=== PATIENT | male | born 1995 ===

== ENCOUNTER 2016-12-22 14:29 | Emergency (ER) | payer OTHER ==
[2016-12-22 14:33] VITALS: BMI 24.1
[2016-12-22 14:35] VITALS: O2SAT 97
[2016-12-22] MEDS ORDERED: Sodium Chloride 0.9% 1,000 ML IV ONE (14:53)
[2016-12-22] MEDS ORDERED: Sodium Chloride 0.9% 1,000 ML ONE (15:12)
[2016-12-22 15:16] LABS: BASO % 0.6 % (0.0-2.0); EOS # 0.1 K/uL (0.0-0.7); EOS % 1.6 % (0.0-4.0); HEMATOCRIT 41.8 % (35.0-51.0); LYMPH # 1.2 K/uL (1.0-4.3); LYMPH % 38.9 % (20.0-40.0); MEAN CELL VOLUME 90.6 fL (80.0-94.0); MEAN CORPUSCULAR HEMOGLOBIN 30.4 pg (27.0-31.0); MEAN CORPUSCULAR HGB CONC 33.6 g/dL (33.0-37.0); MEAN PLATELET VOLUME 8.1 fL (7.2-11.7); MONO # 0.5 K/uL (0.0-0.8); MONO % 16.7 % (0.0-10.0); NRBC % 0.1 % (0.0-2.0); RED CELL DISTRIBUTION WIDTH 12.9 % (11.5-14.5); WHITE BLOOD COUNT 3.1 K/uL (4.8-10.8)
--- NOTE | 2016-12-22 15:19 | C.PDOC ---
History Of Present Illness 21 y/o male presents to ED with complaints of multiple episodes of vomiting and diarrhea since yesterday. Patient states he ate at a [place] restaurant yesterday and 1 hour later symptoms developed. He reports multiple episodes of NB/NB vomitus and loose stool. Denies abdominal pain, fever, blood in stool, dysuria, hematuria, recent antibiotic use, recent travel. 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 Time Seen by Provider: 12/22/16 14:35 Chief Complaint (Nursing): Abdominal Pain History Per: Patient History/Exam Limitations: no limitations Onset/Duration Of Symptoms: Days Current Symptoms Are (Timing): Still Present Context: Food Past Medical History Reviewed: Historical Data, Nursing Documentation, Vital Signs Vital Signs: Last Vital Signs Temp 97.4 F L 12/22/16 16:29 Pulse 80 12/22/16 16:29 Resp 16 12/22/16 16:29 BP 124/69 12/22/16 16:29 Pulse Ox 97 12/22/16 16:29 - [facility] Procedures ORCHIOPEXY (05/09/13) Family History: States: Unknown Family Hx - Social History Hx Alcohol Use: No Hx Substance Use: No - Immunization History Hx Tetanus Toxoid Vaccination: No Hx Influenza Vaccination: No Hx Pneumococcal Vaccination: No Review Of Systems Except As Marked, All Systems Reviewed And Found Negative. Constitutional: Negative for: Fever, Chills Eyes: Negative for: Pain ENT: Negative for: Ear Pain Cardiovascular: Negative for: Chest Pain, Palpitations, Orthopnea Respiratory: Negative for: Cough, Shortness of Breath, SOB with Excertion, Wheezing Gastrointestinal: Positive for: Vomiting, Diarrhea. Negative for: Abdominal Pain, Constipation Genitourinary: Negative for: Dysuria, Frequency, Hematuria, Penile Discharge, Scrotal Pain Skin: Negative for: Rash Neurological: Negative for: Dizziness Psych: Negative for: Anxiety Physical Exam - Physical Exam Appears: Well, Non-toxic, No Acute Distress Skin: Normal Color, Warm, No Rash Head: Atraumatic, Normacephalic Eye(s): bilateral: Normal Inspection, PERRL, EOMI Oral Mucosa: Moist Chest: Symmetrical Cardiovascular: Rhythm Regular Respiratory: Normal Breath Sounds, No Rales, No Rhonchi, No Wheezing Gastrointestinal/Abdominal: Soft, No Tenderness, No Distention, No Guarding, No Rebound Back: Normal Inspection, No CVA Tenderness Extremity: Normal ROM Neurological/Psych: Oriented x3, Normal Speech, Normal Cognition Gait: Steady ED Course And Treatment - Laboratory Results Result Diagrams: 12/22/16 15:09 12/22/16 15:09 O2 Sat by Pulse Oximetry: 97 (RA) Pulse Ox Interpretation: Normal Medical Decision Making Medical Decision Making: Plan: * IV fluids * Pepcid, zofran * labs 3:41PM CBC and CMP grossly normal. Lipase WNL. IVF infusing 4:32PM Patient has been monitored in the ED for 2 hours. He has not had any additional episodes of vomiting or diarrhea. He is tolerating po. He continues to have soft NT/ND abdomen. He reports that he feels better and wants to go home. Disposition - Disposition Disposition: HOME/ ROUTINE Disposition Time: 16:21 Condition: GOOD Additional Instructions: Advance diet slowly. Return to ED if condition worsens. FOllow-up with PMD within 2 days. Instructions: Gastroenteritis (ED) Forms: [facility] ([place]), Work Excuse - Clinical Impression Clinical Impression: Gastroenteritis - Scribe Statement The provider has reviewed the documentation as recorded by the Mariluzibsharita Vega All medical record entries made by the Mariluzibsharita were at my direction and personally dictated by me. I have reviewed the chart and agree that the record accurately reflects my personal performance of the history, physical exam, medical decision making, and the department course for this patient. I have also personally directed, reviewed, and agree with the discharge instructions and disposition.
[2016-12-22 15:27] LABS: ALB/GLOB RATIO 1.4 (1.0-2.1); ALKALINE PHOSPHATASE 68 U/L (38-126); ALT/SGPT 30 U/L (21-72); AST/SGOT 26 U/L (17-59); BLOOD UREA NITROGEN 14 mg/dL (9-20); CALCIUM 8.9 mg/dl (8.6-10.4); CARBON DIOXIDE 25 mmol/L (22-30); CHLORIDE 100 mmol/L (98-107); GFR AFRICAN-AMERICAN > 60; GLUCOSE,RANDOM 85 mg/dL (75-110); MAGNESIUM 1.9 mg/dL (1.6-2.3); PHOSPHOROUS 3.3 mg/dL (2.5-4.5); POTASSIUM 4.1 mmol/L (3.6-5.2); SODIUM 138 mmol/L (132-148); TOTAL PROTEIN 7.8 g/dL (6.3-8.3)
[2016-12-22 16:30] VITALS: BP 124/69; PULSE 80; RESP 16; TEMP 97.4
== END 2016-12-22 16:29 | disposition home or self-care (01) ==
LOC: C.ER 14:29
DX: K52.9 Noninfective gastroenteritis and colitis, unspecified (principal)
CPT/HCPCS: 80053; 83690; 83735; 84100; 85025; 96361; 96374; 96375; 99284; J2405; J7040

== ENCOUNTER 2017-11-19 22:19 | Emergency (ER) | payer SELFPAY ==
[2017-11-19 22:19] VITALS: BMI 24.1
[2017-11-19 22:25] VITALS: BP 143/64; PULSE 77; RESP 18; TEMP 98; O2SAT 98
[2017-11-19] MEDS ORDERED: Acetaminophen-Codeine 300/30 mg Tab PO STA (23:01)
[2017-11-19] MEDS ORDERED: Acetaminophen-Codeine 300/30 mg Tab PO ONE (23:06)
--- NOTE | 2017-11-19 23:25 | C.PDOC ---
History Of Present Illness 21 year old male presets to the ED c/o right sided dental pain. Patient is c/o upper and lower teeth pain, that patient thinks might be his wisdom teeth. 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 Patient denies injury, fall, trauma, fever, chills, nausea, vomit, diarrhea, headache, dizziness. Time Seen by Provider: 11/19/17 22:30 Chief Complaint (Nursing): Dental Pain History Per: Patient History/Exam Limitations: no limitations Onset/Duration Of Symptoms: Days Current Symptoms Are (Timing): Still Present Quality: Positive for: "Pain" Recent travel outside of the [place]: No Additional History Per: Patient Past Medical History Reviewed: Historical Data, Nursing Documentation, Vital Signs Vital Signs: Last Vital Signs Temp 98 F 11/19/17 22:21 Pulse 77 11/19/17 22:21 Resp 18 11/19/17 22:21 BP 143/64 11/19/17 22:21 Pulse Ox 98 11/20/17 02:33 - Medical History PMH: No Chronic Diseases Surgical History: No Surg Hx - [facility] Procedures ORCHIOPEXY (05/09/13) Family History: States: Unknown Family Hx - Social History Hx Alcohol Use: No Hx Substance Use: No - Immunization History Hx Tetanus Toxoid Vaccination: No Hx Influenza Vaccination: No Hx Pneumococcal Vaccination: No Review Of Systems Constitutional: Negative for: Fever, Chills ENT: Positive for: Mouth Pain. Negative for: Nose Discharge, Mouth Swelling, Throat Pain Gastrointestinal: Negative for: Nausea, Vomiting Skin: Negative for: Rash Physical Exam - Physical Exam Appears: Non-toxic, No Acute Distress Skin: Normal Color, Warm, Dry Head: Atraumatic, Normacephalic, No Swelling Eye(s): bilateral: Normal Inspection, PERRL Ear(s): Bilateral: Normal Oral Mucosa: Moist Tongue: No Lesions Lips: No Laceration Teeth: Tender To Palpation (right lower and upper posterior molar ), Other ( lower posterior moalar impacted ) Gingiva: Normal Appearing, No Erythema, No Swelling, No Tender, No Abscess Throat: Normal, No Erythema, No Exudate, No Drooling Neck: Normal ROM, No Midline Cervical Tenderness, Supple Neurological/Psych: Oriented x3, Normal Speech Gait: Steady ED Course And Treatment O2 Sat by Pulse Oximetry: 98 (ON RA) Pulse Ox Interpretation: Normal Progress Note: Plan: - tylenol/codeine 2 tab PO. Patient reports pain improved after medications. Patient was advised to follow up with dentists for further evaluation. Reassessment Condition: Improved Disposition Counseled Patient/Family Regarding: Diagnosis, Need For Followup, Rx Given - Disposition Referrals: Non [facility] Provider, [Primary Care Provider] - Disposition: HOME/ ROUTINE Disposition Time: 23:21 Condition: STABLE Additional Instructions: Please follow up with dental clinic May follow at [facility] - dental clinic in [place] Take medications as directed Return to ER if worse Prescriptions: Acetaminophen/Codeine [Tylenol/Codeine 300 MG/30 MG] 1 ea PO Q6 PRN #10 tab PRN Reason: Pain, Moderate (4-7) Instructions: Dental Pain (DC) Forms: [facility] (Pashto), [facility] ([place]ian) - Clinical Impression Clinical Impression: Pain, dental - 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 - Scribe Statement The provider has reviewed the documentation as recorded by the Scribe Edwin Duckworth All medical record entries made by the Mariluzibshairta were at my direction and personally dictated by me. I have reviewed the chart and agree that the record accurately reflects my personal performance of the history, physical exam, medical decision making, and the department course for this patient. I have also personally directed, reviewed, and agree with the discharge instructions and disposition.
== END 2017-11-19 23:38 | disposition home or self-care (01) ==
LOC: C.ER 22:19 → SUPCPDRO 22:19 → C.ER 23:38
DX: K08.89 Other specified disorders of teeth and supporting structures (principal)